=== PATIENT | female | born 1960 | race Caucasian/White ===

== ENCOUNTER → 2020-06-02 | Outpatient (CLI) | payer BC | LOC: SJCVCIMAG 07:50 | PROVIDERS: ATTEND Internal Medicine Cardiovascular Disease | DX: I25.10 Atherosclerotic heart disease of native coronary artery without angina pectoris (principal); R00.0 Tachycardia, unspecified; I49.3 Ventricular premature depolarization; I25.5 Ischemic cardiomyopathy; Z79.899 Other long term (current) drug therapy ==